=== PATIENT | male | born 2000 | race Caucasian/White ===

== ENCOUNTER → 2021-10-09 | Outpatient (CLI) | payer OTHER | LOC: KOH-I 10-07 09:22 | DX: M25.562 Pain in left knee (principal); M79.662 Pain in left lower leg; M76.52 Patellar tendinitis, left knee | CPT/HCPCS: 73721 ==

== ENCOUNTER → 2022-03-25 | Outpatient (CLI) | payer OTHER | LOC: KOH-I 03-02 14:30 | DX: M22.2X2 Patellofemoral disorders, left knee (principal); S83.242A Other tear of medial meniscus, current injury, left knee, initial encounter; M71.22 Synovial cyst of popliteal space [Baker], left knee | CPT/HCPCS: 73721 ==